=== PATIENT | female | born 1965 | race Two or more races ===

== ENCOUNTER → 2016-12-03 | Day surgery (SDC) | payer BC ==
[~2016-12-03] MED LIST: BENZ100C PO; GUAI600T47 PO; HYDROmorphone 2 MG/ML VIAL IV PRN; IV RINGERS,LACTATED 1000ML 1,000 ML IV SCH; LIDOCAINE 1% 1 ML SYRINGE. ID PRN; MORPHINE SULFATE 2 MG/ML DISP.SYRIN. IV PRN; ONDANSETRON PF 4 MG/2 ML VIAL. IV PRN; PROCHLORPERAZINE 10 MG/2 ML VIAL. IV PRN; PROPOFOL 40 ML IV ONE; RANI150T2 PO; SULF1TAB24 PO; fentaNYL PF VIAL 100 MCG/2 ML VIAL IV PRN
[2016-12-03 08:55] VITALS: BP 131/66
== END | disposition home or self-care (01) ==
LOC: MERGE 07:06 → ENDOS 07:06
PROVIDERS: ATTEND Internal Medicine Gastroenterology
DX: Z12.11 Encounter for screening for malignant neoplasm of colon (principal); K64.0 First degree hemorrhoids; K57.30 Diverticulosis of large intestine without perforation or abscess without bleeding; Z83.3 Family history of diabetes mellitus; Z82.49 Family history of ischemic heart disease and other diseases of the circulatory system; Z72.89 Other problems related to lifestyle
CPT/HCPCS: 45378; J2704

== ENCOUNTER → 2017-06-13 | Outpatient (CLI) | payer BC ==
[2016-12-03 08:55] VITALS: BP 131/66
[~2017-06-13] MED LIST changes: -HYDROmorphone 2 MG/ML VIAL IV PRN; -IV RINGERS,LACTATED 1000ML 1,000 ML IV SCH; -LIDOCAINE 1% 1 ML SYRINGE. ID PRN; -MORPHINE SULFATE 2 MG/ML DISP.SYRIN. IV PRN; -ONDANSETRON PF 4 MG/2 ML VIAL. IV PRN; -PROCHLORPERAZINE 10 MG/2 ML VIAL. IV PRN; -PROPOFOL 40 ML IV ONE; -fentaNYL PF VIAL 100 MCG/2 ML VIAL IV PRN
--- NOTE | 2017-06-13 12:58 | RAD ---
APPROVED REPORT Test Type: Exercise Stress Nurse/Tech: Beau MCCLOUDcafe manager History: none Medications: see EMR Medical History: see EMR Resting ECG: SR Resting Heart Rate: 75 bpm Resting Blood Pressure: 142/63mmHg Pretest Chest Pain: No chest pain Nurse/Tech Notes S1, S2 wnl. Lungs CTA. Pt denies any Pain or SOB. Consent: The procedure was explained to the patient in lay terms. Informed consent was witnessed. Harsha eout was entered into [employer]. History and Stress Test performed by DAFNE Welsh, WENT (R) (N) Stress Symptoms SOB POST EXERCISE Reason for Termination: Reached target heart rate Target HR: Yes Max HR: 169 bpm 119% of Maximum Predicted HR: 141 bpm Exercise duration: 7:39 min:sec, 3 Stage Exercise capacity: 10.0METs Max Blood Pressure: 143/65mmHg Blood Pressure response to exercise: Normal blood pressure response during stress. Heart Rate response to exercise: wnl Chest Pain: No. Arrhythmia: No. ST Change: No. INTERPRETATION Stress EKG Conclusion: No evidence of stress induced EKG changes. Imaging Protocol IMAGE PROTOCOL: Rest Tc-99m/stress Tc-99m 1 day Rest: Stress: Viability: Radiopharm.Tc99m [id number] Sestamibi [id number] 33mCi Img Date 06/13/2017 06/13/2017 Rest Admin Site:IV - Left AntecubitalAdministrator:DAFNE Welsh ARRT (R)(N) Stress Admin Site: IV - Left AntecubitalAdministrator: RT Halima (R)(N) STRESS DATA End Diast. Vol.78.0mlAv. Heart Rate82.0bpm End Syst. Vol.16.0mlCO Index BSA0.0L/min Myocardial Shos339.0gEject. Uewdenlg46.0% Stress Rates Pk. Fill Rate3.94EDV/secLVtime Pk. Fill 198.61msec Pk. Empty Rate5.11ESV/secLVtime Pk. Klktd599.83msec 06/29 Pk. Fill1.06EDV/sec Stress Scores Regional WT0.00Summed WT0.00 Regional WM0.00Summed WM0.00 The rest and stress images show normal perfusion, normal contraction and thickening. LV Perf. Quant 17 Seg. SSS0.00 17 Seg. SRS0.00 17 Seg. SDS0.00 Stress Defect Extent (% LAD)0.00Rest Defect Extent (% LAD)2.50Rev. Defect Extent (% LAD)0.00 Stress Defect Extent (% LCX) 0.00Rest Defect Extent (% LCX)0.00Rev. Defect Extent (% LCX)0.00 Stress Defect Extent (% RCA)0.00Rest Defect Extent (% RCA)0.00Rev. Defect Extent (% RCA)0.00 Stress Defect Extent (% TIMOTHY)0.00Rest Defect Extent (% TIMOTHY)1.70Rev. Defect Extent (% TIMOTHY)0.00 Other Information Quality:Good Risk Assessment: Low Risk Conclusion 1. No evidence of EKG changes with stress testing. 2. Normal perfusion at stress/rest. 3. Low risk study. 4. EF > 60%.
== END | disposition home or self-care (01) ==
LOC: NM 08:34
PROVIDERS: ATTEND Internal Medicine Cardiovascular Disease
DX: I49.5 Sick sinus syndrome (principal); R07.9 Chest pain, unspecified
CPT/HCPCS: 78452; 93017; 96374; 96375; 96376; A9500

== ENCOUNTER → 2017-09-14 | Outpatient (CLI) | payer BC | END | disposition home or self-care (01) | LOC: KCIC MAMMO 09:45 | DX: Z12.31 Encounter for screening mammogram for malignant neoplasm of breast (principal) | CPT/HCPCS: 77067 ==

== ENCOUNTER → 2019-03-15 | Outpatient (CLI) | payer BC ==
[2016-12-03 08:55] VITALS: BP 131/66
--- NOTE | 2019-03-15 11:31 | RAD ---
Examination: Ultrasound pelvis HISTORY: History of lower abdominal pain COMPARISON: None available FINDINGS: The uterus measures 8.5 x 5.0 x 4.0 cm. The endometrium is 2.6 mm in thickness. There is a 1.6 x 1.7 x 1.6 cm echogenicity identified in the fundus probably a fundal fibroid. The right and left ovaries are not well-visualized due to bowel gas. IMPRESSION: 1. A 1.7 cm fundal fibroid identified. 2. Right and left ovaries weren't visualized due to bowel gas. Electronically signed by: Ole Richards MD (03/15/2019 11:28 AM) [place] [id number]
--- NOTE | 2019-03-15 16:43 | RAD ---
Abdominal ultrasound 03/15/2019 postprandial pain. Lower abdominal pain. COMPARISON STUDY: CT of the abdomen and pelvis August 12, 2010 Discussion: Ultrasound evaluation of the abdomen was performed. Static images are submitted to PACS. Pancreas is partially visualized. Visualized portions of the pancreas appear unremarkable. The visualized portions of the aorta and IVC are unremarkable. The liver is normal in size measuring 14 cm longitudinally. Portions of the liver are not visualized. Visualized liver demonstrates no focal abnormality. Echotexture appears grossly normal. Portal venous flows in the normal direction. Cholelithiasis noted within the gallbladder. There is a shadowing stone within the neck of the gallbladder. This appears to be nonmobile. The gallbladder wall is top normal thickness 0.3 cm. No pericholecystic fluid is seen. The bilateral kidneys are grossly unremarkable in appearance measuring 9 point centimeters in length on the right and 11.0 cm in length on the left. Spleen is normal in size measuring 10 cm longitudinally. IMPRESSION: Cholelithiasis with relatively large shadowing stone noted in the gallbladder neck. However, no definitive sonographic evidence of cholecystitis is seen. If there is continued clinical concern for acute cholecystitis, consider hepatobiliary scan Electronically signed by: Jos Betancourt MD (03/15/2019 4:40 PM) [id number]
== END | disposition home or self-care (01) ==
LOC: US 07:36
PROVIDERS: ATTEND Family Medicine
DX: K80.20 Calculus of gallbladder without cholecystitis without obstruction (principal); D25.9 Leiomyoma of uterus, unspecified
CPT/HCPCS: 76700; 76830; 76856

== ENCOUNTER → 2020-06-03 | Outpatient (CLI) | payer BC ==
[2016-12-03 08:55] VITALS: BP 131/66
--- NOTE | 2020-06-03 15:32 | RAD ---
Complete abdominal ultrasound 06/03/2020 INDICATION: Lower abdominal pain. COMPARISON STUDY: None Discussion: Ultrasound evaluation of the abdomen was performed. Static images are submitted to PACS. Pancreas is nonvisualized. The aorta is partially visualized. No gross aortic abnormality is seen. Immediately anterior to the abdominal aorta is structure which appears to be soft tissue, possibly representing a lymph node which measures approximately 5.0 x 1.4 x 2.8 cm. Right renal moiety measures an estimated 11.5 cm in longitudinally. The left renal moiety measures estimated [address] 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 Liver is normal in size and appearance measuring 14 cm longitudinally. Portal venous flows in the normal direction. There is a large shadowing stone in the gallbladder lumen. The gallbladder is otherwise unremarkable. There is no intrahepatic biliary dilatation. The common bile duct is poorly visualized. The diameter of the common bile duct is between 4 and 5 mm. The spleen is top normal in size measuring 11.5 cm longitudinally. IMPRESSION: 1. Cholelithiasis without evidence of acute cholecystitis 2. Possible prominent lymph node immediately anterior to the abdominal aorta versus the crossing portion of a horseshoe kidney. 3. Consider further evaluation with contrast-enhanced CT as clinically indicated Electronically signed by: Jos Betancourt MD (06/03/2020 3:29 PM) [id number]
== END ==
LOC: US 10:12
PROVIDERS: ATTEND Family Medicine
DX: K80.20 Calculus of gallbladder without cholecystitis without obstruction (principal)
CPT/HCPCS: 76700

== ENCOUNTER → 2021-01-05 | Outpatient (CLI) | payer BC ==
[2016-12-03 08:55] VITALS: BP 131/66
--- NOTE | 2021-01-05 15:47 | KCIC ---
EXAM: Chest, 2 views. HISTORY: Shortness of air. COMPARISON: None. FINDINGS: 2 views of the chest are obtained. There is no infiltrate, pleural effusion or pneumothorax . The heart is normal in size. There are calcified granulomas. IMPRESSION: No acute pulmonary finding. Electronically signed by: Sita Humphries MD (01/05/2021 3:45 PM) [id number]
== END ==
LOC: KCIC 15:10
PROVIDERS: ATTEND Internal Medicine Critical Care Medicine
DX: J84.10 Pulmonary fibrosis, unspecified (principal); J98.4 Other disorders of lung
CPT/HCPCS: 71046